=== PATIENT | male | born 1950 | race Caucasian/White ===

== ENCOUNTER 2017-03-30 03:46 | Emergency (ER) | payer MEDICARE ==
[~2017-03-30 03:46] MED LIST: ASPI81TA82 PO; ENAL10TA7 PO; GLYB1TAB51 PO; GLYB5TAB3 OR; METF-324 PO; MIRA33502 PO; TRAM50 PO; VIAG100T PO; ZOCO80TA PO
[2017-03-30] MEDS ORDERED: SODIUM BICARBONATE 8.4% INJ 50 MEQ/50 ML SYR IV ONE (03:47)
[2017-03-30] MEDS ORDERED: EPINEPHrine HCL (1:10,000) 1 MG/10 ML SYRINGE IV ONE (03:47)
--- NOTE | 2017-03-30 04:24 | PD ---
HPI Chief Complaint: Code Blue Time Seen by Provider: 04:14 Travel History International Travel<30 days: No Contact w/Intl Traveler<30days: No Traveled to known affect area: No History of Present Illness HPI The patient is a 67-year-old male that became increasingly short of breath at home. The patient started turning blue and the called the ambulance personnel. Apparently very shortly after the ambulance arrived he lost circulation. When the ambulance personnel put in the airway a large amount of clear fluid, slightly foamy according to the came out of the mouth. The ambulance personnel noted an agonal rhythm, pulseless, when they instituted ACLS protocol. The patient started getting a pulse again briefly but then lost it and he went back into PEA. The patient once again at around 3:15 this morning briefly got return of spontaneous circulation. The ambulance personnel states that he had a brief return of spontaneous circulation after they gave him bicarbonate. The patient quickly went back into PEA and remained in PEA until he is brought into the hospital. The patient does have a history of heart disease and had a coronary artery bypass in 2008. PFSH Past Medical History Cardiac Catheterization: Yes High Cholesterol: Yes Diabetes: Yes Hypertension: Yes Integumentary: Yes (SKIN CANCER) PNEUMOCCOCAL Vaccine (Year): 2007 Past Surgical History Coronary Artery Bypass Graft: Yes (2008) Coronary Stent: Yes Social History Alcohol Use: Yes (OCCASIONAL) Tobacco Use: No Allergies-Medications (Allergen,Severity, Reaction): Coded Allergies: No Known Allergies (Verified , 08/15/11) Reported Meds & Prescriptions Reported Meds & Active Scripts Active Ultram (Tramadol HCl) 50 Mg Tab 1 Tab PO Q6HPRN Miralax (Polyethylene Glycol) 255 Gm Powd 1 Capful PO HS MIX 1 CAPFUL (17 GM) IN 8 OZ OF WATER Reported Zocor (Simvastatin) 80 Mg Tab 80 Mg PO HS Diabeta (Glyburide) 5 Mg Tab 5 Mg PO Glyburide 5 Mg Tab 5 Mg OR DAILY Enalapril Maleate 10 Mg Tab 10 Mg PO DAILY Viagra (Sildenafil Citrate) 100 Mg Tab 100 Mg PO Glucophage (Metformin HCl) 1,000 Mg Tab 1,000 Mg PO BID Aspir-81 (Aspirin) 81 Mg Tab 81 Mg PO Review of Systems ROS Limitations: Unresponsive Physical Exam Narrative Upon arrival the patient was cool, pulseless with no heart sounds and ACLS protocol being instituted. With bagging, good breath sounds were heard bilaterally. Good pulses were felt with compressions only. No pulses were ever felt in the emergency department other than the pulse related to compressions. ACLS protocol was continued including bicarbonate but the patient never recovered pulses. Ultimately an ultrasound was done on the patient and virtually no heart movements were observed on ultrasound except a tiny several millimeter movement at the apex of the heart associated with the QRS complex. This movement is totally ineffective and moving blood. At this point efforts at resuscitation were terminated. No pericardial effusion was noted. MDM Medical Decision Making Medical Screen Exam Complete: Yes Emergency Medical Condition: Yes Medical Record Reviewed: Yes Differential Diagnosis Sudden cardiac , pulmonary embolus, pericardial effusionhighly unlikely Narrative Course The patient has sudden cardiac . Likely he suffered a heart attack and ultimately went into congestive heart failure causing the short of breath and the patient finally lost virtually all cardiac contractions. Diagnosis Primary Impression: Sudden cardiac Disposition: 20 Condition: Luis Calzada MD Mar 30, 2017 04:24
== END 2017-03-30 05:10 | disposition expired ==
LOC: PHED 03:46
DX: I46.9 Cardiac arrest, cause unspecified (principal)
CPT/HCPCS: 92950; J0171